=== PATIENT | male | born 2005 | race Caucasian/White ===

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

== ENCOUNTER 2024-04-26 01:30 | Emergency (ER) | payer OTHER, MEDICAID ==
[~2024-04-26] VITALS: Ht 180.3 cm; Wt 116.7 kg
[~2024-04-26 01:30] MED LIST: IBUP-2030 MT
[2024-04-26 01:36] VITALS: O2SAT 99
[2024-04-26 01:38] VITALS: BP 138/72; PULSE 94; RESP 20; TEMP 98.5; O2SAT 99
[2024-04-26] MEDS ORDERED: IBUP-2030 MT (02:51)
[2024-04-26] MEDS ORDERED: CYCL5TAB3 MT (02:51)
== END 2024-04-26 03:20 | disposition home or self-care (01) ==
LOC: ER 01:59
DX: S13.9XXA Sprain of joints and ligaments of unspecified parts of neck, initial encounter (principal); X58.XXXA Exposure to other specified factors, initial encounter; Y93.89 Activity, other specified; Y92.89 Other specified places as the place of occurrence of the external cause; Y99.8 Other external cause status
CPT/HCPCS: 99283